=== PATIENT | male | born 1955 | race Caucasian/White ===

== ENCOUNTER → 2017-01-01 | Outpatient (CLI) | payer BC ==
[~2017-01-01] MED LIST: CHOL100010 PO; CLON0.5T3 PO; CRS/10 PO; CYAN10004 PO; DICY10CA55 PO; ESCI1TAB10 PO; MELA1TAB54 PO; PANT40TA PO; TPRSR/25 PO; ULT/50 PO
--- NOTE | 2017-01-01 10:49 | DIAGNOSTIC IMAGING REPORT ---
RIGHT HIP 2 VIEWS HISTORY: Right hip pain. COMPARISON: None. FINDINGS: There is no fracture or dislocation. Soft tissues are unremarkable. The visualized pelvic bones are intact. There are multiple metallic sutures coils within the pelvis suggesting prior hernia repair. Right hip cartilage spaces maintained for age. IMPRESSION: No fractures. Electronically signed by: Davon Ayala M.D. 01/01/2017 10:47 AM Dictated Date/Time: 01/01/2017 10:44 AM
== END | disposition home or self-care (01) ==
LOC: C.RAD1850 10:26
PROVIDERS: ATTEND Internal Medicine
DX: M25.551 Pain in right hip (principal)

== ENCOUNTER → 2017-08-10 | Outpatient (CLI) | payer BC | END | disposition home or self-care (01) | LOC: C.MAMM 08:23 | PROVIDERS: ATTEND Internal Medicine | DX: M81.0 Age-related osteoporosis without current pathological fracture (principal) ==

== ENCOUNTER → 2018-03-03 | Outpatient (CLI) | payer OTHER ==
--- NOTE | 2018-03-03 09:37 | DIAGNOSTIC IMAGING REPORT ---
CERVICAL SPINE W/O CLINICAL HISTORY: 62 years-old Male presenting with M54.12 Cervical radiculopathy at C6, arm numbness. TECHNIQUE: Multidetector CT of the cervical spine was performed without the use of intravenous contrast. 3-D volumetric and/or maximum intensity projection (MIP) images were subsequently reconstructed for review. IV contrast: None. A dose lowering technique was used consistent with the principles of ALARA (as low as reasonably achievable). COMPARISON: 07/30/2015. CT DOSE (mGy.cm): The estimated cumulative dose is 1547.[address] thoracic spine. FINDINGS: [employer] topogram: Left subclavian implanted cardiac defibrillator with leads to the right atrium and right ventricular apex. Anterior cervical fusion hardware. Postsurgical changes of anterior cervical discectomy and fusion of C5-6. Osseous fusion across this level is evident primarily anteriorly. No hardware breakage or complication. No lucency surrounds the screws. Straightening of normal cervical lordosis likely due to the presence of fusion hardware. Vertebral bodies maintain normal height and alignment. Mild intervertebral disc height loss evident at C6-7. Adjacent level degenerative change with disc osteophyte complexes noted at C4-5 and C6-7. Minimal posterior bony spurring at the operative level as well as at C6-7. This does not significantly efface the spinal canal. Uncovertebral hypertrophy results in mild osseous neural foraminal narrowing on the right at C3-4, on the right at C4-5, and right greater than left at C6-7. No acute fracture or subluxation. Lung apices clear. Paraspinal soft tissues within normal limits allowing for noncontrast technique. IMPRESSION: 1. No acute osseous injury of the cervical spine. 2. Postsurgical changes of anterior cervical discectomy and fusion of C5-6. 3. Adjacent level degenerative changes at C4-5 and C6-7 with the greatest degree of osseous neural foraminal narrowing at C6-7. Electronically signed by: Brodie Singer M.D. 03/03/2018 9:36 AM Dictated Date/Time: 03/03/2018 9:29 AM
--- NOTE | 2018-03-03 09:41 | DIAGNOSTIC IMAGING REPORT ---
THORACIC SPINE WITHOUT HISTORY: 62 years-old Male S22.000A Thoracic compression fracturethoracic compression fract acute mid back pain with concern for acute fracture. COMPARISON: Thoracic spine CT 07/30/2015, CTA of the chest 11/05/2015 TECHNIQUE: Multiple axial CT images of the thoracic spine were obtained without the use of IV contrast. Coronal and sagittal reformatted images were obtained from the axial data set and were submitted for review. A dose lowering technique was used consistent with the principals of ALARA. FINDINGS: The bones appear mildly demineralized. There is mild dextroscoliosis of 17 degrees measured from T5-T12. Chronic compression deformity of the T12 vertebral body with large superior endplate Schmorl's node. Mostly mild multilevel spondylitic spurring. Fusion hardware is partially imaged involving the lower cervical spine with moderate intervertebral disc space narrowing and spondylitic spurring at the C6-C7 level. There is moderate multilevel facet arthrosis. 5 mm bone island of the T12 vertebral body. The posterior elements appear intact. No acute fracture or subluxation identified. The imaged ribs also appear intact. No definite high-grade central canal narrowing. Moderate right-sided foraminal narrowing at T5-T6 secondary to spondylitic spurring and facet arthrosis. Moderate right-sided foraminal narrowing at C6-C7 with mild central canal stenosis secondary to posterior disc osteophyte complex. Soft tissues are unremarkable. Mild dependent subsegmental bibasilar atelectasis with otherwise clear lung fisher. IMPRESSION: 1. No acute fracture or subluxation of the thoracic spine. 2. Chronic compression deformity of the T12 vertebral body without retropulsion or significant central canal stenosis. 3. 17 degrees dextroscoliosis measured from T5-T12. 4. Degenerative changes as above. The above report was generated using voice recognition software. It may contain grammatical, syntax or spelling errors. Electronically signed by: Rey Soriano M.D. 03/03/2018 9:40 AM Dictated Date/Time: 03/03/2018 9:33 AM
== END | disposition home or self-care (01) ==
LOC: C.CTS 08:57
PROVIDERS: ATTEND Internal Medicine
DX: M47.22 Other spondylosis with radiculopathy, cervical region (principal); S22.000A Wedge compression fracture of unspecified thoracic vertebra, initial encounter for closed fracture; X58.XXXA Exposure to other specified factors, initial encounter; Z98.1 Arthrodesis status